=== PATIENT | female | born 1955 | race Caucasian/White ===

== ENCOUNTER → 2017-08-27 | Outpatient (CLI) | payer BC ==
--- NOTE | 2017-08-27 09:15 | RADIOLOGY REPORT (SQ) ---
EXAM DESCRIPTION: CHEST PA/LAT COMPLETED DATE/TIME: 08/27/2017 8:55 am REASON FOR STUDY: COPD COMPARISON: None. EXAM PARAMETERS: NUMBER OF VIEWS: two views TECHNIQUE: Digital Frontal and Lateral radiographic views of the chest acquired. RADIATION DOSE: NA LIMITATIONS: none FINDINGS: LUNGS AND PLEURA: No opacities, masses or pneumothorax. No pleural effusion. MEDIASTINUM AND HILAR STRUCTURES: No masses or contour abnormalities. HEART AND VASCULAR STRUCTURES: Heart normal size. No evidence for failure. BONES: No acute findings. HARDWARE: None in the chest. OTHER: No other significant finding. IMPRESSION: NO SIGNIFICANT RADIOGRAPHIC FINDING IN THE CHEST. TECHNICAL DOCUMENTATION: JOB ID: [id number] [employer]- All Rights Reserved
== END ==
LOC: RAD 08:39
PROVIDERS: ATTEND Family Medicine
DX: J44.9 Chronic obstructive pulmonary disease, unspecified (principal); Z87.891 Personal history of nicotine dependence
CPT/HCPCS: 71046

== ENCOUNTER → 2018-01-31 | Outpatient (CLI) | payer BC ==
[2018-01-31 12:54] LABS: ABSOLUTE EOSINOPHILS # (AUTO) 0.4 10^3/uL (0.0-0.6); ABSOLUTE LYMPHOCYTES (AUTO) 2.4 10^3/uL (0.5-4.7); ABSOLUTE MONOCYTES (AUTO) 0.3 10^3/uL (0.1-1.4); ABSOLUTE NEUT (AUTO) 4.4 10^3/uL (1.7-8.2); BASOPHILS % (AUTO) 0.5 % (0-2); EOSINOPHILS % (AUTO) 5.6 % (0-6); HEMATOCRIT 35.6 % (36.0-47.0); HEMOGLOBIN 11.9 g/dL (12.0-15.5); LYMPHOCYTES % (AUTO) 31.4 % (13-45); MEAN CORPUSCULAR HEMOGLOBIN 31.3 pg (27.0-33.4); MEAN CORPUSCULAR HGB CONC 33.4 g/dL (32.0-36.0); MEAN CORPUSCULAR VOLUME 94 fl (80-97); MONOCYTES % (AUTO) 4.3 % (3-13); PLATELET COUNT 298 10^3/uL (150-450); RED BLOOD COUNT 3.79 10^6/uL (3.72-5.28); RED CELL DISTRIBUTION WIDTH 13.5 % (11.5-14.0); SEGMENTED NEUTROPHILS % (AUTO) 58.2 % (42-78); TOTAL CELLS COUNTED % (AUTO) 100 %; WHITE BLOOD COUNT 7.6 10^3/uL (4.0-10.5)
[2018-01-31 13:29] LABS: ERYTHROCYTE SEDIMENTATION RATE 37 mm/hr (0-30)
[2018-02-02 07:11] LABS: CYCLIC CITRUL PEPTIDE IGG/A AB 6 units (0-19)
== END ==
LOC: OD 11:33
PROVIDERS: ATTEND Family Medicine
DX: M65.871 Other synovitis and tenosynovitis, right ankle and foot (principal); M65.872 Other synovitis and tenosynovitis, left ankle and foot
CPT/HCPCS: 36415; 85025; 85652; 86038; 86140; 86200; 86430

== ENCOUNTER → 2019-03-28 | Outpatient (CLI) | payer BC ==
--- NOTE | 2019-03-28 14:03 | RADIOLOGY REPORT (SQ) ---
EXAM DESCRIPTION: CT CHEST WITHOUT COMPLETED DATE/TIME: 03/28/2019 1:13 pm REASON FOR STUDY: TOBACCO ABUSE COUNSELING (Z71.6) Z71.6 TOBACCO ABUSE COUNSELING COMPARISON: None. TECHNIQUE: CT scan performed of the chest without intravenous contrast. Images reviewed with lung, soft tissue and bone windows. Reconstructed coronal and sagittal MPR images reviewed. All images st ored on PACS. All CT scanners at this facility use dose modulation, iterative reconstruction, and/or weight based d osing when appropriate to reduce radiation dose to as low as reasonably achievable (ALARA). [facility]: Dose Right [facility]: CareDose [facility]: Dose Right [facility]: Teradose 4D [facility]: [employer] RADIATION DOSE: CT Rad equipment meets quality standard of care and radiation dose reduction techniq ues were employed. CTDIvol: 3.7 mGy. DLP: 152 mGy-cm. mGy. LIMITATIONS: No technical limitations. FINDINGS: LUNGS AND PLEURA: There is spiculated 12 mm nodule in the anterior aspect of the right low er lobe. There is limited atelectasis in the left lower lobe. HILAR AND MEDIASTINAL STRUCTURES: No identified masses or abnormal nodes. No obvious aneurysm. HEART AND VASCULAR STRUCTURES: No aneurysm. No pericardial effusion. UPPER ABDOMEN: No significant findings. Limited exam. THYROID AND OTHER SOFT TISSUES: No masses. No adenopathy. BONES: No significant finding. HARDWARE: None in the chest. OTHER: No other significant findings. IMPRESSION: 12 mm nodule in the anterior right lower lobe highly concerning for neoplasm. Consider PET-CT. TECHNICAL DOCUMENTATION: JOB ID: [id number] Quality ID # [id number]: Final reports with documentation of one or more dose reduction techniques (e.g., Au tomated exposure control, adjustment of the mA and/or kV according to patient size, use of iterative reconstruction technique) 2010 FIA [employer]- All Rights Reserved Reading location - IP/workstation name: [email or web address]
== END ==
LOC: RAD 12:53
PROVIDERS: ATTEND Internal Medicine Hematology & Oncology
DX: R91.1 Solitary pulmonary nodule (principal); Z71.6 Tobacco abuse counseling
CPT/HCPCS: 71250

== ENCOUNTER → 2019-04-08 | Outpatient (CLI) | payer BC ==
--- NOTE | 2019-04-09 10:20 | RADIOLOGY REPORT (SQ) ---
EXAM DESCRIPTION: PET CT SKULL/THIGH COMPLETED DATE/TIME: 04/09/2019 6:12 am REASON FOR STUDY: (R91.1)SOLITARY PULMONARY NODULE R91.1 SOLITARY PULMONARY NODULE COMPARISON: CT chest dated 03/18/2019. RADIONUCLIDE AND DOSE: 10 mCi F18 FDG The route of agent administration: Intravenous FASTING BLOOD SUGAR: 89 mg/dl CONTRAST TYPE AND DOSE: No CT contrast given. TECHNIQUE: Blood glucose level was verified. Above dose of FDG was injected intravenously. 2-D seg mented attenuation correction images were obtained from the base of the skull to the midthighs. Nonc ontrast CT images were obtained for attenuation correction and fusion with emission images. CT image s were performed without oral or intravenous contrast and are not sensitive for parenchymal lesions. A series of overlapping emission PET images were obtained. Images reviewed and manipulated at [facility] work station by the radiologist. Images stored on PACS. LIMITATIONS: None. FINDINGS: HEAD AND NECK: No areas of abnormal metabolic activity in the soft tissues of the head and neck. CHEST: Spiculated mass in the right lower lobe measuring 1.8 cm (image 93). Measurement on recent ch est CT was 1.2- 1.3 cm. Mean SUV 3.99. No other areas of abnormal metabolic activity in the chest. ABDOMEN AND PELVIS: No areas of abnormal metabolic activity in the abdomen or pelvis. Expected physi ologic activity is present in the genitourinary system and bowel. PROXIMAL LOWER EXTREMITIES: No areas of abnormal metabolic activity in the soft tissues of the lower extremities. BONES: No abnormal metabolic activity in the visualized skeleton. ADDITIONAL CT FINDINGS: Surgical changes in the lumbar spine. Cholecystectomy. Numerous calcificati ons in the subcutaneous fatty tissues of the gluteal regions secondary to prior injections and/or tra bhargavi. No additional significant findings on the noncontrast CT images. OTHER: Background blood pool activity mean SUV 1.75. Background liver activity mean SUV 2.27. No ot her significant findings. IMPRESSION: 1. SPICULATED MASS IN THE RIGHT LOWER LOBE. CURRENTLY THE MASS MEASURES LARGER THAN THE RECENT CT CH EST. SOME OF THIS CHANGE IN MEASUREMENT IS PROBABLY DUE TO DIFFERENCES IN SCAN TECHNIQUE AND SLICE P OSITION ALTHOUGH THERE MAY HAVE BEEN SOME GROWTH IN THE INTERIM. MEAN SUV 3.99. HIGHLY SUSPICIOUS F OR MALIGNANCY. 2. NO OTHER SIGNIFICANT FINDINGS. TECHNICAL DOCUMENTATION: JOB ID: [id number] [employer]- All Rights Reserved Reading location - IP/workstation name: [email or web address]
== END ==
LOC: RAD 16:02
PROVIDERS: ATTEND Internal Medicine Hematology & Oncology
DX: R91.1 Solitary pulmonary nodule (principal)
CPT/HCPCS: 78815; A9552

== ENCOUNTER 2019-05-26 22:26 | Emergency (ER) | payer BC ==
[2019-05-26 23:10] LABS: ABSOLUTE BASOPHILS # (AUTO) 0.1 10^3/uL (0.0-0.2); ABSOLUTE EOSINOPHILS # (AUTO) 0.5 10^3/uL (0.0-0.6); ABSOLUTE LYMPHOCYTES (AUTO) 2.7 10^3/uL (0.5-4.7); ABSOLUTE MONOCYTES (AUTO) 0.5 10^3/uL (0.1-1.4); ABSOLUTE NEUT (AUTO) 6.4 10^3/uL (1.7-8.2); BASOPHILS % (AUTO) 0.8 % (0-2); EOSINOPHILS % (AUTO) 5.1 % (0-6); HEMATOCRIT 30.7 % (36.0-47.0); HEMOGLOBIN 10.2 g/dL (12.0-15.5); LYMPHOCYTES % (AUTO) 26.4 % (13-45); MEAN CORPUSCULAR HEMOGLOBIN 30.9 pg (27.0-33.4); MEAN CORPUSCULAR VOLUME 94 fl (80-97); MONOCYTES % (AUTO) 4.8 % (3-13); PLATELET COUNT 502 10^3/uL (150-450); RED BLOOD COUNT 3.29 10^6/uL (3.72-5.28); SEGMENTED NEUTROPHILS % (AUTO) 62.9 % (42-78); TOTAL CELLS COUNTED % (AUTO) 100 %; WHITE BLOOD COUNT 10.2 10^3/uL (4.0-10.5)
[2019-05-26] MEDS ORDERED: HYDROMORPHONE HCL INJ/PF 2 MG/ML AMPULE IV ONE (23:12)
[2019-05-26] MEDS ORDERED: NORMAL SALINE 500 ML IV ONE (23:17)
[2019-05-26 23:22] LABS: ALBUMIN 3.8 g/dL (3.5-5.0); ALKALINE PHOSPHATASE 75 U/L (38-126); ANION GAP 11 (5-19); ASPARTATE AMINO TRANSFERASE 27 U/L (14-36); BILIRUBIN,DIRECT 0.2 mg/dL (0.0-0.4); BILIRUBIN,TOTAL 0.3 mg/dL (0.2-1.3); BLOOD UREA NITROGEN 30 mg/dL (7-20); CALCIUM 9.4 mg/dL (8.4-10.2); CARBON DIOXIDE 23 mmol/L (22-30); CHLORIDE 109 mmol/L (98-107); GLUCOSE 96 mg/dL (75-110); POTASSIUM 4.2 mmol/L (3.6-5.0)
[2019-05-26 23:34] LABS: INTERNATIONAL RATION (INR) 1.04; PROTHROMBIN TIME 13.6 SEC (11.4-15.4)
--- NOTE | 2019-05-26 23:34 | RADIOLOGY REPORT (SQ) ---
EXAM DESCRIPTION: XR CHEST 2 VIEWS COMPLETED DATE/TME: 05/26/2019 00:00 CLINICAL HISTORY: 64 years Female, chest pain COMPARISON: None. NUMBER OF VIEWS/TECHNIQUE: 2, Frontal, Lateral FINDINGS: Right chest tube. Extensive soft tissue emphysema of the right hemithorax. Moderate right lung volume. Right upper abdominal clips. Small medial right basilar opacity may indicate atelectasis, effusion, or pneumonia. Normal cardiac silhouette, and intact bony thorax. IMPRESSION: 1. Small medial right basilar opacity may indicate atelectasis, effusion, or pneumonia. 2. Right chest tube. 3. Extensive soft tissue emphysema of the right hemithorax.
[2019-05-26] MEDS ORDERED: ONDANSETRON HCL INJ/PF 4 MG/2 ML SDV IV ONE (23:43)
[2019-05-26] MEDS ORDERED: LORAZEPAM INJ 2 MG/1 ML VIAL IV ONE (23:44)
--- NOTE | 2019-05-27 01:12 | RADIOLOGY REPORT (SQ) ---
EXAM DESCRIPTION: CTA chest with intravenous contrast CLINICAL HISTORY: 64 years Female, concern for PE, hx of partial pneumonectomy right lower lobe. creat 1.22 COMPARISON: CT chest 03/28/2019 TECHNIQUE: Axial images of the chest were performed utilizing intravenous contrast, with sagittal and coronal MIP images and sagittal and coronal reformatted images. This exam was performed according to our departmental dose-optimization program which includes use of Automated Exposure Control, adjustment of the mA and/or kV according to patient size and/or use of iterative reconstruction technique. FINDINGS: There is evidence of a recent right lower lobe resection. There is a right-sided hydropneumothorax of approximately 10-15%. There is an indwelling right-sided chest tube. There is coronary artery calcification. No evidence of pulmonary embolus. No evidence of aortic dissection. IMPRESSION: Right-sided hydropneumothorax with a chest tube in place.
[2019-05-27] MEDS ORDERED: HYDROMORPHONE HCL INJ/PF 2 MG/ML AMPULE IV ONE (01:13)
[2019-05-27 01:47] VITALS: BP 111/84
--- NOTE | 2019-05-27 23:15 | EKG REPORT ---
SEVERITY:- NORMAL ECG - SINUS RHYTHM : Confirmed by: Deepika Duff 27-May-2019 23:14:52
--- NOTE | 2019-05-29 10:13 | ER Document Report ---
Entered by CHICO MUÑOZ SCRIBE 05/26/19 6620 Acting as scribe for:STEPHAN BANKS MD ED General - General Chief Complaint: Chest Pain Stated Complaint: CHEST PAIN Time Seen by Provider: 05/26/19 22:38 Primary Care Provider: LILLIE COBURN MD [Primary Care Provider] - Follow up as needed Mode of Arrival: Wheelchair Information source: Patient Notes: 64-year-old female who presents to the emergency department today with complaints of right sided chest pain. Patient had a right lower lung lobectomy on May 09 at [facility] for lung cancer. Patient has had a chest tube in since then because of a "bad air leak" according to . Patient is on high dosed pain medication at baseline and is followed by pain management. Patient reports her pain had been well controlled until this evening when her pain increased. at bedside states he called the surgeon at [facility], Dr. Barboza, who told her to "come to the nearest emergency room to rule out a collapsed lung". Patient is not on chemotherapy. Patient denies any trauma. Patient states she does not feel like this chest tube was moved or shifted. Patient denies any d ischarge from this. TRAVEL OUTSIDE OF THE [place] IN LAST 30 DAYS: No - Related Data Allergies/Adverse Reactions: diazepam [From Valium] Allergy (Verified 05/26/19 23:00) NSAIDS (Non-Steroidal Anti-Inflamma Allergy (Verified 05/26/19 22:55) Past Medical History - General Information source: Patient - Social History Smoking Status: Current Every Day Smoker Cigarette use (# per day): Yes Frequency of alcohol use: None Drug Abuse: None Lives with: Family Family History: Reviewed & Not Pertinent Review of Systems - Review of Systems Constitutional: denies: Fever EENT: No symptoms reported Cardiovascular: No symptoms reported Respiratory: See HPI, Other - left sided chest wall pain. denies: Short of breath Gastrointestinal: No symptoms reported Genitourinary: No symptoms reported Female Genitourinary: No symptoms reported Musculoskeletal: No symptoms reported Skin: No symptoms reported Hematologic/Lymphatic: No symptoms reported Neurological/Psychological: No symptoms reported -: Yes All other systems reviewed and negative Physical Exam - Vital signs Vitals: Temp Resp BP Pulse Ox 98 F 17 109/87 H 97 05/26/19 22:33 05/26/19 22:33 05/26/19 22:33 05/26/19 22:33 - Notes Notes: Physical Exam: General: Alert, appears uncomfortable. HEENT: Normocephalic. Atraumatic. PERRL. Extraocular movements intact. Oropharyn x clear. Neck: Supple. Non-tender. Respiratory: No respiratory distress. Diminished breath sounds on the right consistent with lobectomy. Chest tube in place on the right without sign of infection. No crackles. Cardiovascular: Regular rate and rhythm. Abdominal: Normal Inspection. Non-tender. No distension. Normal Bowel Sounds. Back: No gross abnormalities. Extremities: Moves all four extremities. Upper extremities: Normal inspection. Normal ROM. Lower extremities: Normal inspection. No edema. Normal ROM. Neurological: Normal cognition. AAOx4. Normal speech. Psychological: Normal affect. Normal Mood. Skin: Warm. Dry. Normal color. Course - Re-evaluation Re-evalutation: 05/26/19 23:07 Patient presents with sudden onset of sharp right-sided chest pain. Patient had partial pneumonectomy secondary to malignant neoplasm in late April of this year. She has had chest tube with one-way valve due to with the says is an air leak and appears to likely have a chronic pleural effusion. No recent fevers or illnesses. Her pain is only on the right side. She is not hypoxic or tachypneic. Pending chest xray. If normal will work pt up for PE. EKG normal, pending troponin at this time. 05/27/19 00:04 Chest x-ray shows no significant finding to warrant patient's pain. She has pleuritic pain that is worse with deep breaths. As it is associated with breathing and recent surgery not consistent with ACS has been recently hospitalized in late April will perform CTA as discussed to rule out PE. 05/27/19 01:19 Patient has approximately 10 to 15% right hydropneumothorax with chest tube in place no evidence of pulmonary embolism pneumonia or dissection. Will place patient's chest tube on intermittent wall suction. Also consulting patient's cardiothoracic surgeon at [facility]. Patient symptoms have improved with intermittent wall suction. Discussed the case with Dr. Biggs who is on-call for the patient's cardiothoracic surgeon. She states that the 10 to 15% right hydropneumothorax is the patient's baseline. I discussed all these findings the patient discussed what we have ruled out today. She has an appoint with her cardiothoracic surgeon on Tuesday. She is to take her pain medications at home as prescribed. Return precautions provided - Vital Signs Vital signs: Temp Pulse Resp BP Pulse Ox 98 F 12 122/80 97 05/26/19 22:33 05/26/19 22:47 05/26/19 22:47 05/26/19 22:47 - Laboratory Result Diagrams: 05/26/19 22:40 05/26/19 22:40 Laboratory results interpreted by me: 05/26/19 05/26/19 22:40 22:40 RBC 3.29 L Hgb 10.2 L Hct 30.7 L Plt Count 502 H Chloride 109 H BUN 30 H Est GFR ( Amer) 54 L Est GFR (MDRD) Non-Af 45 L - Diagnostic Test Radiology reviewed: Image reviewed, Reports reviewed - EKG Interpretation by Me Additional EKG results interpreted by me: 05/26/19 23:26 Time 2244 Rate of 86, normal sinus rhythm, normal axis and intervals no concerning ST depressions or elevations Discharge - Discharge Clinical Impression: Pleuritic chest pain Condition: Good Disposition: HOME, SELF-CARE Additional Instructions: Please follow-up with your cardiothoracic surgeon on Tuesday as discussed. Return the emergency department for any concerns or reevaluation if symptoms are worsening. Please use petroleum gauze around chest tube site when changing padding as this can help prevent any air leaks. I personally performed the services described in the documentation, reviewed and edited the documentation which was dictated to the scribe in my presence, and it accurately records my words and actions.
== END 2019-05-27 02:20 | disposition home or self-care (01) ==
LOC: ER 22:26
DX: R07.81 Pleurodynia (principal); Z90.2 Acquired absence of lung [part of]; Z85.118 Personal history of other malignant neoplasm of bronchus and lung; F17.210 Nicotine dependence, cigarettes, uncomplicated
CPT/HCPCS: 93005; 99285; 96361; 96374; 96375; 36415; 85025; 85610; 80053; 84484; 71046; 71275; 93010; J1170 ×2; J2060; J2405; J7040

== ENCOUNTER 2019-08-24 08:45 | Emergency (ER) | payer BC ==
--- NOTE | 2019-08-24 09:37 | RADIOLOGY REPORT (SQ) ---
EXAM DESCRIPTION: CHEST SINGLE VIEW COMPLETED DATE/TIME: 08/24/2019 9:21 am REASON FOR STUDY: Chronic right sided empyema, acute confusion COMPARISON: 05/26/2019 EXAM PARAMETERS: NUMBER OF VIEWS: One view. TECHNIQUE: Single frontal radiographic view of the chest acquired. RADIATION DOSE: NA LIMITATIONS: None. FINDINGS: LUNGS AND PLEURA: There has been retraction of the right-sided large bore chest tube with side port outside the thoracic cavity. No pneumothorax. Linear right basilar opacities, increased f rom prior. Trace left effusion. MEDIASTINUM AND HILAR STRUCTURES: No masses. Contour normal. HEART AND VASCULAR STRUCTURES: Heart normal in size. Normal vasculature. BONES: No acute findings. HARDWARE: Retraction of the large bore right-sided chest tube with side port external to the thoracic cavity. Left approach PICC tip terminates at SVC. OTHER: No other significant finding. IMPRESSION: Interval retraction of the large bore right-sided chest tube with side port external to the thoracic cavity. No pneumothorax. Increased linear right basilar opacities, possibly atelectasis or pneumonia. Findings discussed with Dr. Orozco on 08/24/2019 at 0929 hours. TECHNICAL DOCUMENTATION: JOB ID: [id number] [employer]- All Rights Reserved Reading location - IP/workstation name: [email or web address]
[2019-08-24 11:55] LABS: ABSOLUTE BASOPHILS # (AUTO) 0.1 10^3/uL (0.0-0.2); ABSOLUTE EOSINOPHILS # (AUTO) 0.4 10^3/uL (0.0-0.6); ABSOLUTE LYMPHOCYTES (AUTO) 1.3 10^3/uL (0.5-4.7); ABSOLUTE MONOCYTES (AUTO) 0.5 10^3/uL (0.1-1.4); BASOPHILS % (AUTO) 0.9 % (0-2); EOSINOPHILS % (AUTO) 5.6 % (0-6); HEMATOCRIT 26.4 % (36.0-47.0); HEMOGLOBIN 8.1 g/dL (12.0-15.5); LYMPHOCYTES % (AUTO) 18.2 % (13-45); MEAN CORPUSCULAR HEMOGLOBIN 28.9 pg (27.0-33.4); MEAN CORPUSCULAR HGB CONC 30.5 g/dL (32.0-36.0); MEAN CORPUSCULAR VOLUME 95 fl (80-97); MONOCYTES % (AUTO) 7.4 % (3-13); PLATELET COUNT 439 10^3/uL (150-450); RED BLOOD COUNT 2.79 10^6/uL (3.72-5.28); RED CELL DISTRIBUTION WIDTH 18.2 % (11.5-14.0); SEGMENTED NEUTROPHILS % (AUTO) 67.9 % (42-78); TOTAL CELLS COUNTED % (AUTO) 100 %; WHITE BLOOD COUNT 7.4 10^3/uL (4.0-10.5)
[2019-08-24 12:18] LABS: ALBUMIN 2.7 g/dL (3.5-5.0); ALKALINE PHOSPHATASE 77 U/L (38-126); ANION GAP 13 (5-19); ASPARTATE AMINO TRANSFERASE 17 U/L (14-36); BILIRUBIN,DIRECT 0.4 mg/dL (0.0-0.4); BILIRUBIN,TOTAL 0.6 mg/dL (0.2-1.3); BLOOD UREA NITROGEN 26 mg/dL (7-20); CALCIUM 8.6 mg/dL (8.4-10.2); CARBON DIOXIDE 19 mmol/L (22-30); CHLORIDE 106 mmol/L (98-107); CREATINE KINASE < 20 U/L (30-135); GLUCOSE 83 mg/dL (75-110); POTASSIUM 4.3 mmol/L (3.6-5.0)
--- NOTE | 2019-08-24 12:20 | RADIOLOGY REPORT (SQ) ---
EXAM DESCRIPTION: CT HEAD WITHOUT COMPLETED DATE/TIME: 08/24/2019 11:54 am REASON FOR STUDY: Altered mental status COMPARISON: None. TECHNIQUE: Axial images acquired through the brain without intravenous contrast. Images reviewed wi th bone, brain and subdural windows. Additional sagittal and coronal reconstructions were generated. Images stored on PACS. All CT scanners at this facility use dose modulation, iterative reconstruction, and/or weight based d osing when appropriate to reduce radiation dose to as low as reasonably achievable (ALARA). [facility]: Dose Right [facility]: CareDose [facility]: Dose Right [facility]: Teradose 4D [facility]: [employer] RADIATION DOSE: CT Rad equipment meets quality standard of care and radiation dose reduction techniq ues were employed. CTDIvol: 53.2 mGy. DLP: 991 mGy-cm. mGy. LIMITATIONS: None. FINDINGS: VENTRICLES: Normal size and contour. CEREBRUM: No masses. No hemorrhage. No midline shift. No evidence for acute infarction. Few scatte red areas of low density in the white matter most likely chronic small vessel ischemic changes. CEREBELLUM: No masses. No hemorrhage. No alteration of density. No evidence for acute infarction. EXTRAAXIAL SPACES: No fluid collections. No masses. ORBITS AND GLOBE: No intra- or extraconal masses. Normal contour of globe without masses. CALVARIUM: No fracture. Degenerative changes at the temporomandibular joints with anterior displacem ent of the right TMJ compared to the left. PARANASAL SINUSES: No fluid or mucosal thickening. SOFT TISSUES: No mass or hematoma. OTHER: No other significant finding. IMPRESSION: No evidence of acute intracranial abnormality. Degenerative changes at the temporal mandibular joints with anterior displacement of the right compar ed to the left. Recommend correlation with patient symptoms. EVIDENCE OF ACUTE STROKE: NO. COMMENT: Quality ID # [id number]: Final reports with documentation of one or more dose reduction techniques (e.g., Automated exposure control, adjustment of the mA and/or kV according to patient size, use of iterative reconstruction technique) TECHNICAL DOCUMENTATION: JOB ID: [id number] [employer]- All Rights Reserved Reading location - IP/workstation name: [email or web address]
--- NOTE | 2019-08-24 13:16 | ER Document Report ---
Entered by MEL CRAMER SCRIBE 08/24/19 0904 Acting as scribe for:JAK MILLAN MD ED General - General Chief Complaint: Altered Mental Status Stated Complaint: ALTERED MENTAL STATUS Time Seen by Provider: 08/24/19 08:51 Primary Care Provider: MEHRAN PERALTA MD [NO LOCAL MD] - Follow up as needed Information source: Patient, Relative Notes: 64 year old female with lung cancer presents to the emergency department with AMS that began last evening. Patient's spouse reported he started noticing the patient having slurred speech, "shaking/jerking" and trouble with putting sentences together. Spouse gave patient Gatorade and water because he "thought i t was an electrolyte issue". Patient's spouse says that she is "to weak to stand up". Patient's spouse mentions that her confusion began two days prior to arrival after starting transfusions three times a day. Patient's spouse also mentions that when she had an infection in the past she "showed no signs of infection". Patient only missed 8 AM medications this morning. Patient's blood pressure was lower than normal with EMS and at baseline patient's blood pressure is in the 90s. PCP: Dr. Francis Hsieh Surgeon: Dr. Mehran Peralta TRAVEL OUTSIDE OF THE [place] IN LAST 30 DAYS: No - Related Data Allergies/Adverse Reactions: diazepam [From Valium] Allergy (Verified 08/24/19 09:14) NSAIDS (Non-Steroidal Anti-Inflamma Allergy (Verified 08/24/19 09:14) Past Medical History - General Information source: Relative - Social History Smoking Status: Unknown if Ever Smoked Family History: Reviewed & Not Pertinent Malignancy Medical History: Reports: Hx Lung Cancer - Right Lung GI Medical History: Reports: Hx Gastroesophageal Reflux Disease Past Surgical History: Reports: Hx Cholecystectomy - 2013 Review of Systems - Review of Systems Constitutional: No symptoms reported EENT: No symptoms reported Cardiovascular: No symptoms reported Respiratory: No symptoms reported Gastrointestinal: No symptoms reported Genitourinary: No symptoms reported Female Genitourinary: No symptoms reported Musculoskeletal: No symptoms reported Skin: No symptoms reported Hematologic/Lymphatic: No symptoms reported Neurological/Psychological: See HPI, Confusion, Weakness, Speech impairment, Tremor -: Yes All other systems reviewed and negative Physical Exam - Vital signs Vitals: Temp Resp BP Pulse Ox 97.5 F 15 105/72 90 L 08/24/19 09:04 08/24/19 09:04 08/24/19 09:04 08/24/19 09:04 - Notes Notes: Physical Exam: General: Alert, appears agitated. HEENT: Normocephalic. Atraumatic. PERRL. Extraocular movements intact. Oropharynx clear. Dry mouth. Neck: Supple. Non-tender. Respiratory: No respiratory distress. Coarse breath sounds and rhonchi bilateral ly. Chest tube placement in right scapula region. Bandage above chest tube. Cardiovascular: Regular rate and rhythm. Abdominal: Normal Inspection. Non-tender. No distension. Normal Bowel Sounds. Back: No gross abnormalities. Extremities: Moves all four extremities. Upper extremities: Normal ROM. Moderate Tremors. Lower extremities: No edema. Normal ROM. Moderate Tremors. Neurological: Impaired speech that suddenly clears voluntarily. Psychological: Normal affect. Normal Mood. Skin: Warm. Dry. Normal color. Course - Re-evaluation Re-evalutation: 08/24/19 13:17 The spouse was concerned that the patient was having a stroke due to some asymmetry to her face. I did notice that the left face seemed to pull back slightly compared to the right. CT scan shows some anterior displacement of the right TMJ relative to the left, so this may explain what is being seen. 08/24/19 15:34 I did discuss the case with Dr. Gallardo at [facility] about 1340 today. He requested the medicine service accept the patient. I just called back and learned that the patient had been accepted by Dr. Chen from the medicine service and she is now waiting for a bed assignment. 08/24/19 16:33 The transfer center looked up some records for me prior to getting the consultants for me to speak with, and tell me that on 08/21/2019 patient's hemoglobin was 6.8, and her creatinine was 1.15 today the hemoglobin is 8.1 and the creatinine is 5.00 while the BUN is only 26 today. This rise in hemoglobin and creatinine may be all due to poor p.o. intake. - Vital Signs Vital signs: Temp Pulse Resp BP Pulse Ox 97.5 F 14 124/80 100 08/24/19 09:04 08/24/19 14:01 08/24/19 14:00 08/24/19 13:00 - Laboratory Result Diagrams: 08/24/19 11:30 08/24/19 11:30 Laboratory results interpreted by me: 08/24/19 08/24/19 11:30 11:30 RBC 2.79 L Hgb 8.1 L Hct 26.4 L MCHC 30.5 L RDW 18.2 H Carbon Dioxide 19 L BUN 26 H Creatinine 5.00 H Est GFR ( Amer) 11 L Est GFR (MDRD) Non-Af 9 L Creatine Kinase < 20 L Total Protein 6.0 L Albumin 2.7 L - Diagnostic Test Radiology reviewed: Image reviewed, Reports reviewed - Chest x-ray today shows a chest tube with 1 of the airports outside the thoracic cavity, but probably below the skin line. CT scan of the head shows chronic small vessel ischemic c hanges. There are degenerative changes at the temporomandibular joints with anterior displacement of the right TMJ compared to the left. - EKG Interpretation by Me EKG shows normal: Sinus rhythm, [place], QRS Complexes, ST-T Waves. abnormal: Intervals - Prolonged QT interval Rate: Normal - 89 Rhythm: NSR When compared to previous EKG there are: No significant change - Transfer of Care Care transferred to following provider: Dr. White Notes: 08/24/19 16:45 Patient received 1 L of normal saline bolus and is now receiving normal saline maintenance fluids at 200 mL's an hour. Orders have been written for the medica tions that she will need while she waits for bed assignment at [facility]. If she is not eating by this evening, then the next liter of maintenance fluids should probably be something like D5LR. Discharge - Discharge Clinical Impression: Encounter for management of wound VAC Complication of chest tube Qualifiers: Encounter type: initial encounter Qualified Code(s): T85.9XXA - Unspecified complication of internal prosthetic device, implant and graft, initial encounter Acute renal failure (ARF) Qualifiers: Acute renal failure type: unspecified Qualified Code(s): N17.9 - Acute kidney failure, unspecified Anemia Qualifiers: Anemia type: unspecified type Qualified Code(s): D64.9 - Anemia, unspecified Condition: Stable Disposition: [facility] Referrals: MEHRAN PERALTA MD [NO LOCAL MD] - Follow up as needed Scribe Attestation: 08/24/19 10:41 I personally performed the services described in the documentation, reviewed and edited the documentation which was dictated to the scribe in my presence, and it accurately records my words and actions. I personally performed the services described in the documentation, reviewed and edited the documentation which was dictated to the scribe in my presence, and it accurately records my words and actions.
[2019-08-24] MEDS ORDERED: NORMAL SALINE 1000 ML 1,000 ML IV ONE ×2 (13:46→16:32)
--- NOTE | 2019-08-24 14:49 | EKG REPORT ---
SEVERITY:- ABNORMAL ECG - SINUS RHYTHM PROLONGED QT INTERVAL : Confirmed by: Coco Alicia MD 24-Aug-2019 14:49:12
[2019-08-24] MEDS ORDERED: ALPRAZOLAM 0.5 MG TABLET PO ONE (15:29)
[2019-08-24] MEDS ORDERED: OXYCODONE-ACETAMINOPHEN 5-325 MG TABLET PO ONE (15:29)
[2019-08-24] MEDS ORDERED: OXYCODONE-ACETAMINOPHEN 5-325 MG TABLET PO PRN (15:41)
[2019-08-24] MEDS ORDERED: ALPRAZOLAM 0.5 MG TABLET PO PRN (15:42)
[2019-08-24] MEDS ORDERED: CEFEPIME 1 GM/D5W RTU 1 GM/50 ML RTUPB IV ONE (15:53)
[2019-08-24] MEDS ORDERED: CYCLOBENZAPRINE HCL 10 MG TABLET PO PRN (15:54)
[2019-08-24] MEDS ORDERED: ESCITALOPRAM OXALATE 10 MG TABLET PO SCH (16:00)
[2019-08-24] MEDS ORDERED: PANTOPRAZOLE SODIUM 20 MG TABLET.DR PO SCH (16:00)
[2019-08-24] MEDS ORDERED: ASPIRIN 81 MG TABLET, CHEWABLE PO SCH (16:00)
[2019-08-24] MEDS ORDERED: GABAPENTIN 400 MG CAPSULE PO SCH (16:15)
[2019-08-24] MEDS ORDERED: NORMAL SALINE 1000 ML 1,000 ML IV PRN (16:33)
[2019-08-24] MEDS ORDERED: CEFEPIME 1 GM/D5W RTU 1 GM/50 ML RTUPB IV SCH (16:35)
[2019-08-24] MEDS ORDERED: METOPROLOL TARTRATE 25 MG TABLET PO SCH (18:00)
[2019-08-24] MEDS ORDERED: DEXTROSE 5%-LACTATED RINGERS 1,000 ML IV ONE (20:16)
[2019-08-24 20:28] VITALS: BP 134/90
== END 2019-08-24 21:09 | disposition short-term general hospital (02) ==
LOC: ER 08:45
DX: T85.9XXA Unspecified complication of internal prosthetic device, implant and graft, initial encounter (principal); N17.9 Acute kidney failure, unspecified; D64.9 Anemia, unspecified; C34.91 Malignant neoplasm of unspecified part of right bronchus or lung; R41.82 Altered mental status, unspecified; M26.69 Other specified disorders of temporomandibular joint; R47.81 Slurred speech; Z90.49 Acquired absence of other specified parts of digestive tract
CPT/HCPCS: 93005; 36415; 87040; 82550; 83735; 85025; 80053; 84484; 71045; 70450; 93010; J7121; J7030; J0692; J1642; 96361; 96365; 96367; 99285